=== PATIENT | male | born 1990 | race African-American/Black ===

== ENCOUNTER 2019-07-19 18:24 | Emergency (ER) | payer SELFPAY ==
[~2019-07-19] VITALS: Ht 177.8 cm; Wt 72.7 kg
[2019-07-19] MEDS ORDERED: UNKNOWN ANTIBIOTIC PO (18:36)
[2019-07-19] MEDS ORDERED: NORVASC5 M1 PO (18:36)
[2019-07-19] MEDS ORDERED: DOXYCYCL HYC100 MG PO (18:58)
[2019-07-19 19:27] VITALS: BP 139/85
== END 2019-07-19 19:27 | disposition home or self-care (01) | DRG 603 ==
LOC: ED 18:24
DX: L03.116 Cellulitis of left lower limb (principal); I10 Essential (primary) hypertension

== ENCOUNTER 2020-05-09 10:42 | Emergency (ER) | payer SELFPAY ==
[~2020-05-09] VITALS: Ht 177.8 cm; Wt 80.0 kg
[~2020-05-09 10:42] MED LIST: DOXYCYCL HYC100 MG PO; HYDROCHLOROT25 MG PO; NORVASC5 M1 PO; UNKNOWN ANTIBIOTIC PO
[2020-05-09 11:49] LABS: HEMOGLOBIN 14.8 g/dl (14.0-18.0); IMMATURE GRANULOCYTES 0.5 % (0.0-5.0); MEAN CORPUSCULAR HGB 30.6 pG CALC (26.0-32.0); MEAN CORPUSCULAR HGB CONC 32.9 g/dL CAL (32.0-36.0); NEUT# 6.26 thou/uL (1.82-7.42); RED BLOOD COUNT 4.84 mill/uL (4.70-6.10); RED CELL DISTRI WIDTH 11.3 % (11.5-15.5)
[2020-05-09 12:26] LABS: ALBUMIN 5.1 g/dL (3.2-5.0); ALKALINE PHOSPHATASE 79 u/l (38-126); ANION GAP 13 (6-22 (CALC)); BILIRUBIN, TOTAL 0.9 mg/dL (0.0-1.4); BUN 9 mg/dL (9-20); BUN/CREATININE RATIO 8 (12-20 (CALC)); CHLORIDE 106 mmol/l (95-108); CPK 242 u/l (52-200); CREATININE 1.1 mg/dL (0.7-1.3); GFR > 60 ML/MIN (>=60 (CALC)); GFR FOR AFR.AMER. > 60 ML/MIN (>=60 (CALC)); POTASSIUM 3.9 mmol/l (3.5-5.1); SGOT/AST 29 u/l (17-59); SODIUM 138 mmol/l (137-146); TOTAL PROTEIN 8.4 g/dL (6.3-8.2)
[2020-05-09 12:29] LABS: CARBON DIOXIDE 23 mmol/l (22-30)
[2020-05-09] MEDS ORDERED: CYCLOBENZAPR5 MG PO (12:32)
[2020-05-09] MEDS ORDERED: ONDANSETRON4 MG PO (12:49)
[2020-05-09 13:30] VITALS: BP 130/77
== END 2020-05-09 13:30 | disposition home or self-care (01) | DRG 538 ==
LOC: ED 10:42
PROVIDERS: Family Medicine
DX: S76.911A Strain of unspecified muscles, fascia and tendons at thigh level, right thigh, initial encounter (principal); I10 Essential (primary) hypertension; X50.3XXA Overexertion from repetitive movements, initial encounter; Y93.01 Activity, walking, marching and hiking

== ENCOUNTER 2021-05-06 19:33 | Emergency (ER) | payer SELFPAY ==
[~2021-05-06] VITALS: Ht 180.3 cm; Wt 77.0 kg
[~2021-05-06 19:33] MED LIST changes: +CYCLOBENZAPR5 MG PO; +ONDANSETRON4 MG PO
[2021-05-06 20:34] LABS: URINE BILIRUBIN - DIPSTICK NEGATIVE (NEGATIVE); URINE BLOOD DIPSTICK TRACE-INTACT (NEGATIVE); URINE COLOR YELLOW; URINE GLUCOSE - DIPSTICK NEGATIVE (NEGATIVE); URINE KETONE NEGATIVE (NEGATIVE); URINE PH 6.5 (4.5-8.0); URINE PROTEIN - DIPSTICK NEGATIVE (NEG-TRACE); URINE SPECIFIC GRAVITY 1.025
[2021-05-06 20:35] LABS: URINE LEUK ESTERASE SMALL (NEGATIVE); URINE NITRITE - DIPSTICK NEGATIVE (Negative)
[2021-05-06 20:52] LABS: URINE SQUAMOUS EPITHELIAL CELL FEW EPI/hpf (0-FEW); URINE WBC 50-100 WBC/hpf (0-5)
[2021-05-06] MEDS ORDERED: PYRIDIUM200 MG PO (20:59)
[2021-05-06] MEDS ORDERED: BACTRIM DS1 TAB PO (20:59)
[2021-05-06 21:07] VITALS: BP 136/85
== END 2021-05-06 21:13 | disposition home or self-care (01) | DRG 690 ==
LOC: ED 19:33
DX: N39.0 Urinary tract infection, site not specified (principal); I10 Essential (primary) hypertension; J45.909 Unspecified asthma, uncomplicated; F17.290 Nicotine dependence, other tobacco product, uncomplicated; Z88.0 Allergy status to penicillin; Z20.2 Contact with and (suspected) exposure to infections with a predominantly sexual mode of transmission

== ENCOUNTER 2021-09-06 00:37 | Emergency (ER) | payer SELFPAY ==
[~2021-09-06] VITALS: Ht 180.3 cm; Wt 77.3 kg
[~2021-09-06 00:37] MED LIST changes: +BACTRIM DS1 TAB PO; +PYRIDIUM200 MG PO
[2021-09-06 01:12] LABS: URINE BILIRUBIN - DIPSTICK NEGATIVE (NEGATIVE); URINE BLOOD DIPSTICK NEGATIVE (NEGATIVE); URINE COLOR YELLOW; URINE GLUCOSE - DIPSTICK NEGATIVE (NEGATIVE); URINE KETONE NEGATIVE (NEGATIVE); URINE LEUK ESTERASE TRACE (NEGATIVE); URINE PROTEIN - DIPSTICK NEGATIVE (NEG-TRACE); URINE UROBILINOGEN - DIPSTICK 0.2 E.U./dL (0.2)
[2021-09-06 01:18] LABS: URINE NITRITE - DIPSTICK NEGATIVE (Negative)
[2021-09-06] MEDS ORDERED: DOXYCYC MONO100 M2 PO (01:44)
[2021-09-06 01:59] VITALS: BP 152/86
== END 2021-09-06 01:59 | disposition home or self-care (01) | DRG 696 ==
LOC: ED 00:37
PROVIDERS: Emergency Medicine
DX: R36.9 Urethral discharge, unspecified (principal); I10 Essential (primary) hypertension; J45.909 Unspecified asthma, uncomplicated; F17.200 Nicotine dependence, unspecified, uncomplicated; Z88.0 Allergy status to penicillin; Z20.2 Contact with and (suspected) exposure to infections with a predominantly sexual mode of transmission

== ENCOUNTER 2022-02-15 10:06 | Emergency (ER) | payer OTHER ==
[~2022-02-15] VITALS: Ht 180.3 cm; Wt 80.9 kg
[~2022-02-15 10:06] MED LIST changes: +DOXYCYC MONO100 M2 PO
[2022-02-15 10:13] VITALS: BP 149/100
[2022-02-15] MEDS ORDERED: ZOFRAN4 MG/TAB PO (10:21)
[2022-02-15] MEDS ORDERED: DOXYCYCL HYC100 M4 PO (10:21)
[2022-02-15] MEDS ORDERED: METRONIDAZOLE500 MG PO (10:21)
[2022-02-15 10:26] LABS: URINE BILIRUBIN - DIPSTICK NEGATIVE (NEGATIVE); URINE BLOOD DIPSTICK NEGATIVE (NEGATIVE); URINE COLOR YELLOW; URINE GLUCOSE - DIPSTICK NEGATIVE (NEGATIVE); URINE KETONE NEGATIVE (NEGATIVE); URINE LEUK ESTERASE NEGATIVE (NEGATIVE); URINE PROTEIN - DIPSTICK NEGATIVE (NEG-TRACE); URINE SPECIFIC GRAVITY >=1.030; URINE UROBILINOGEN - DIPSTICK 0.2 E.U./dL (0.2)
[2022-02-15 10:29] LABS: URINE NITRITE - DIPSTICK NEGATIVE (Negative)
[2022-02-15 10:31] VITALS: BP 132/94
[2022-02-15 10:35] VITALS: BP 132/94
== END 2022-02-15 10:40 | disposition home or self-care (01) | DRG 696 ==
LOC: ED 10:06
PROVIDERS: Family Medicine
DX: R36.9 Urethral discharge, unspecified (principal); I10 Essential (primary) hypertension; J45.909 Unspecified asthma, uncomplicated; F17.200 Nicotine dependence, unspecified, uncomplicated; Z88.0 Allergy status to penicillin; Z20.2 Contact with and (suspected) exposure to infections with a predominantly sexual mode of transmission

== ENCOUNTER 2022-05-21 04:39 | Emergency (ER) | payer OTHER ==
[~2022-05-21] VITALS: Ht 180.3 cm; Wt 77.0 kg
[~2022-05-21 04:39] MED LIST changes: +DOXYCYCL HYC100 M4 PO; +METRONIDAZOLE500 MG PO; +ZOFRAN4 MG/TAB PO
[2022-05-21 04:49] VITALS: BP 125/84
[2022-05-21 05:00] VITALS: BP 115/72
[2022-05-21 05:02] LABS: URINE BILIRUBIN - DIPSTICK NEGATIVE (NEGATIVE); URINE BLOOD DIPSTICK NEGATIVE (NEGATIVE); URINE COLOR YELLOW; URINE GLUCOSE - DIPSTICK NEGATIVE (NEGATIVE); URINE KETONE TRACE mg/dL (NEGATIVE); URINE LEUK ESTERASE NEGATIVE (NEGATIVE); URINE PROTEIN - DIPSTICK TRACE mg/dL (NEG-TRACE); URINE SPECIFIC GRAVITY >=1.030
[2022-05-21 05:04] LABS: URINE NITRITE - DIPSTICK NEGATIVE (Negative)
[2022-05-21 05:15] VITALS: BP 131/81
[2022-05-21 05:28] VITALS: BP 131/81
== END 2022-05-21 05:35 | disposition home or self-care (01) | DRG 696 ==
LOC: ED 04:39
PROVIDERS: Family Medicine
DX: R36.9 Urethral discharge, unspecified (principal); I10 Essential (primary) hypertension; J45.909 Unspecified asthma, uncomplicated; F17.200 Nicotine dependence, unspecified, uncomplicated; Z20.2 Contact with and (suspected) exposure to infections with a predominantly sexual mode of transmission

== ENCOUNTER 2022-06-16 04:35 | Emergency (ER) | payer OTHER ==
[~2022-06-16] VITALS: Ht 180.3 cm; Wt 79.5 kg
[2022-06-16 05:26] VITALS: BP 124/81
[2022-06-16 05:31] VITALS: BP 144/110
[2022-06-16 06:00] VITALS: BP 132/80
[2022-06-16 06:16] VITALS: BP 116/82
[2022-06-16] MEDS ORDERED: MEDDOSEPAK PO (06:23)
[2022-06-16] MEDS ORDERED: PEPCID20 MG PO (06:23)
[2022-06-16] MEDS ORDERED: DIPHENHYDRAM50 M2 PO (06:23)
[2022-06-16 06:24] VITALS: BP 116/82
== END 2022-06-16 06:30 | disposition home or self-care (01) | DRG 916 ==
LOC: ED 04:35
DX: T78.40XA Allergy, unspecified, initial encounter (principal); I10 Essential (primary) hypertension; J45.909 Unspecified asthma, uncomplicated; F17.200 Nicotine dependence, unspecified, uncomplicated; X58.XXXA Exposure to other specified factors, initial encounter

== ENCOUNTER 2022-08-11 10:10 | Emergency (ER) | payer OTHER ==
[~2022-08-11] VITALS: Ht 180.3 cm; Wt 85.0 kg
[~2022-08-11 10:10] MED LIST changes: +DIPHENHYDRAM50 M2 PO; +MEDDOSEPAK PO; +PEPCID20 MG PO
[2022-08-11 10:38] VITALS: BP 141/86
[2022-08-11] MEDS ORDERED: FLEXERIL5 M1 PO (11:25)
[2022-08-11] MEDS ORDERED: NAPROXEN500 MG PO (11:25)
[2022-08-11 11:37] VITALS: BP 141/86
== END 2022-08-11 11:39 | disposition home or self-care (01) | DRG 552 ==
LOC: ED 10:10
DX: M54.16 Radiculopathy, lumbar region (principal); I10 Essential (primary) hypertension; J45.909 Unspecified asthma, uncomplicated; F17.200 Nicotine dependence, unspecified, uncomplicated

== ENCOUNTER 2023-03-19 17:16 | Emergency (ER) | payer OTHER ==
[~2023-03-19] VITALS: Ht 180.3 cm; Wt 77.8 kg
[~2023-03-19 17:16] MED LIST changes: +FLEXERIL5 M1 PO; +NAPROXEN500 MG PO
[2023-03-19] MEDS ORDERED: MEDDOSEPAK PO (18:32)
[2023-03-19] MEDS ORDERED: PAXLOVID PO (18:32)
[2023-03-19 18:57] VITALS: BP 132/87
== END 2023-03-19 19:12 | disposition home or self-care (01) | DRG 179 ==
LOC: ED 17:16
DX: U07.1 COVID-19 (principal); M79.10 Myalgia, unspecified site; R11.2 Nausea with vomiting, unspecified; R50.9 Fever, unspecified; R05.9 Cough, unspecified; J02.9 Acute pharyngitis, unspecified; I10 Essential (primary) hypertension; J45.909 Unspecified asthma, uncomplicated

== ENCOUNTER 2024-11-14 15:16 | Emergency (ER) | payer SELFPAY ==
[~2024-11-14] VITALS: Ht 180.3 cm; Wt 77.0 kg
[~2024-11-14 15:16] MED LIST changes: +PAXLOVID PO
[2024-11-14 16:31] VITALS: BP 130/91
[2024-11-14] MEDS ORDERED: BUTALBITAL-APAP-CAFFEINE 50-325-40 TAB PO ONE (16:40)
[2024-11-14] MEDS ORDERED: OSELTAMIVIR PHOSPHATE 75 MG/TAB CAP PO ONE (16:40)
[2024-11-14] MEDS ORDERED: KETOROLAC TROMETHAMINE 30 MG/ML SDV IM ONE (16:40)
[2024-11-14] MEDS ORDERED: ZOFRAN4 MG/TAB PO (16:43)
[2024-11-14] MEDS ORDERED: IBUPROFEN600 MG PO (16:43)
[2024-11-14] MEDS ORDERED: TAM75CAP PO (16:43)
[2024-11-14] MEDS ORDERED: TYLENOL500 MG PO (16:43)
[2024-11-14 16:57] VITALS: BP 118/66
[2024-11-14 17:07] VITALS: BP 118/66
== END 2024-11-14 17:07 | disposition home or self-care (01) | DRG 153 ==
LOC: ED 15:16
DX: J11.1 Influenza due to unidentified influenza virus with other respiratory manifestations (principal); I10 Essential (primary) hypertension; J45.909 Unspecified asthma, uncomplicated; Z72.0 Tobacco use; Z20.822 Contact with and (suspected) exposure to COVID-19
CPT/HCPCS: J1100